=== PATIENT | female | born 1935 | race Caucasian/White ===

== ENCOUNTER → 2020-04-15 | Outpatient (CLI) | payer MEDICARE ==
[~2020-04-15] MED LIST: ATENOLOL 25 MG25 M1; ATENOLOL 50 MG50 M1 PO; ATENOLOL 50MG T50 MG PO; AUGMENTIN 875875 MG PO; BRAIN MIGHT-DH1 EACH PO; CALCARB 600 WI1 EACH PO; CALCIUM 600 +1 EA11 PO; DICLOFENAC SODI75 MG PO; FISH OIL 1,0001 EAC5 PO; GLUCOPHAGE500 MG; GLUCOPHAGE500 MG PO; GLUCOSAMIN-CHO1 EACH PO; HYDROCHLOROTHIA25 M1 PO; LISINOPRIL10 MG; LISINOPRIL2.5 MG PO; LISINOPRIL20 MG PO; OSTEO BI-FLEX1 EAC3 PO; PERCOCET 5-3251 EACH PO; REGLAN 10 MG TA10 MG PO; SELENIUM200 MC1 PO; SIMVASTATIN40 MG PO; Super B Complex PO; TOPROL XL25 MG PO; VITCB500GO PO
== END ==
LOC: M.ULTRA 10:30
PROVIDERS: ATTEND Family Medicine
DX: K80.80 Other cholelithiasis without obstruction (principal); I70.0 Atherosclerosis of aorta; R94.5 Abnormal results of liver function studies